=== PATIENT | male | born 1940 | race Caucasian/White ===

== ENCOUNTER 2019-03-28 12:10 | Emergency (ER) | payer BC, MEDICARE, OTHER ==
[2019-03-28] MEDS ORDERED: HYDROcodone/Acetaminophen 10/325 mg Tablet ONE (12:40)
[2019-03-28] MEDS ORDERED: Bupivacaine 0.25% 10 ML VIAL ONE (13:07)
[2019-03-28] MEDS ORDERED: Lidocaine 2% MPF 10 ML AMP (For Epidural Use) ONE (13:07)
[2019-03-28 13:09] LABS: #Eosinphils 0.1 thou/uL (0.0-0.7); #Lymphocytes 0.7 thou/uL (1.20-3.40); #Monocytes 0.8 thou/uL (0.11-0.59); #Neutrophils 5.7 thou/uL (1.40-6.50); %Basophils 0.3 % (0.0-1.0); %Eosinophils 1.3 % (0.0-10.0); %Lymphocytes 8.9 % (21.0-51.0); %Monocytes 10.8 % (0.0-10.0); %Neutrophils 78.8 % (42.0-75.0); Hemoglobin 13.4 g/dL (14.0-18.0); Mean Corpuscular HGB CONC 34.6 g/dL (32.0-36.0); Mean Corpuscular Hemoglobin 31.1 pg (27.0-31.0); Mean Corpuscular Volume 89.8 fL (78.0-98.0); Mean Platelet Volume 6.9 fL (7.4-10.4); Platelet Count 173 thou/uL (130-400); RBC Distribution Width 12.5 % (11.5-14.5); White Blood Cell (WBC) Count 7.3 thou/uL (4.8-10.8)
[2019-03-28] MEDS ORDERED: Dexamethasone 10 MG/ML VIAL ONE (13:11)
[2019-03-28 13:15] LABS: INR-International Normal Ratio 1.1; Prothrombin Time 13.7 SEC (12.0-14.7)
[2019-03-28 13:16] LABS: PTT 32.8 SEC (22.9-36.1)
--- NOTE | 2019-03-28 13:19 | CT ---
CT chest noncontrast CT abdomen and pelvis noncontrast CT thoracic spine noncontrast CT lumbar spine noncontrast HISTORY: Fall. Back injury. Chest injury. Abdomen injury. FINDINGS: Lungs are hyperinflated with scattered areas of parenchymal scarring. Dependent bibasilar a telectasis. Nondisplaced fractures involve the lateral aspect of left ribs 9 and 10. No evidence of pneumothorax. Lack of contrast limits evaluation of the soft tissues. 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 Nonspecific lymph nodes scattered about the mediastinum. Calcification in the arterial structures. Small nonspecific lobular cystic lesions involve the far anterior margin of the spleen. Calcified granuloma consistent with healed granulomatous disease. No evidence of laceration. Urinary bladder intact. No free air or free fluid. Left hip prosthesis partially visualiz ed. Prominent degenerative changes throughout the thoracolumbar spine. Vertebral body heights are maintai rambo. Multilevel central canal and foraminal stenoses. No acute fracture or dislocation evident. IMPRESSION: Nondisplaced left lateral lower rib fractures. No evidence of pneumothorax. Atherosclerosis. Incidental-type findings as detailed above.
[2019-03-28 13:30] LABS: ALT (SGPT) 13 U/L (8-55); AST (SGOT) 15 U/L (5-34); Albumin 3.9 g/dL (3.4-4.8); Alkaline Phosphatase 108 U/L (40-110); Anion Gap 12 mmol/L (10-20); BUN (Urea Nitrogen) 19 mg/dL (8.4-25.7); Bilirubin, Total 0.6 mg/dL (0.2-1.2); Calc. Creatinine Clearance 0 mL/min (70-130); Calcium 9.4 mg/dL (7.8-10.44); Carbon Dioxide 28 mmol/L (23-31); Chloride 107 mmol/L (98-107); Estimated GFR-MDRD 74; Globulin 3.5 g/dL (2.4-3.5); Glucose 149 mg/dL (83-110); Potassium 3.8 mmol/L (3.5-5.1); Protein, Total 7.4 g/dL (5.8-8.1); Sodium 143 mmol/L (136-145)
--- NOTE | 2019-03-28 14:53 | OP ---
DATE OF PROCEDURE: 03/28/2019 PROCEDURE PERFORMED: A left T9, T10, and T11 intercostal nerve block. DIAGNOSIS: Left rib fracture, multiple, nondisplaced. DESCRIPTION OF PROCEDURE: Informed consent was obtained. The patient was sitting on his bed in the patient room in the ER. Sterile drapes were used to cover the table and supplies the left ribs. The lower ribs were prepped with ChloraPrep. Sterile drapes were applied. Using strict aseptic technique, we injected 2% lidocaine to anesthetize the skin. We used a 22-gauge spinal needle and inserted this through the skin and advanced it to the ribs at the appropriate level. Once contact was made with the wrist, we walked this off inferiorly until I just dropped 2 mm deep. We aspirated, which was negative and then injected 3 mL of Marcaine 0.25% with Decadron. This was performed for all three rib levels. Total dose of Decadron was 10 mg, after this, the Band-Aids were applied and the patient was placed recumbent under stable condition. No apparent complications noted at this time. Job ID: [id number]
== END 2019-03-28 14:52 | disposition home or self-care (01) ==
LOC: ERS 12:10
DX: S22.42XA Multiple fractures of ribs, left side, initial encounter for closed fracture (principal); I48.91 Unspecified atrial fibrillation; E11.39 Type 2 diabetes mellitus with other diabetic ophthalmic complication; H42 Glaucoma in diseases classified elsewhere; W17.89XA Other fall from one level to another, initial encounter
CPT/HCPCS: 36415; 71250; 74177; 80053; 85025; 85610; 85730; J1100; J2001; S0020

== ENCOUNTER 2019-12-17 18:55 | Inpatient (IN) | payer MEDICARE, OTHER ==
[2019-12-17] MEDS ORDERED: Dexamethasone 10 MG/ML VIAL ONE (19:20)
[2019-12-17 19:25] LABS: #Lymphocytes 0.2 thou/uL (1.20-3.40); #Monocytes 0.5 thou/uL (0.11-0.59); #Neutrophils 8.1 thou/uL (1.40-6.50); %Basophils 0.3 % (0.0-1.0); %Eosinophils 0.1 % (0.0-10.0); %Lymphocytes 2.3 % (21.0-51.0); %Monocytes 5.5 % (0.0-10.0); %Neutrophils 91.8 % (42.0-75.0); Hemoglobin 12.1 g/dL (14.0-18.0); Mean Corpuscular HGB CONC 33.4 g/dL (32.0-36.0); Mean Corpuscular Hemoglobin 31.3 pg (27.0-31.0); Mean Corpuscular Volume 93.6 fL (78.0-98.0); Mean Platelet Volume 7.3 fL (7.4-10.4); Platelet Count 169 thou/uL (130-400); RBC Distribution Width 12.4 % (11.5-14.5); Red Blood Cell (RBC) Count 3.88 mill/uL (4.70-6.10); White Blood Cell (WBC) Count 8.8 thou/uL (4.8-10.8)
[2019-12-17 19:46] LABS: ALT (SGPT) 15 U/L (8-55); AST (SGOT) 18 U/L (5-34); Albumin 3.6 g/dL (3.4-4.8); Alkaline Phosphatase 108 U/L (40-110); Anion Gap 17 mmol/L (10-20); BUN (Urea Nitrogen) 27 mg/dL (8.4-25.7); Bilirubin, Total 0.6 mg/dL (0.2-1.2); Calc. Creatinine Clearance 0 mL/min (70-130); Calcium 9.1 mg/dL (7.8-10.44); Carbon Dioxide 24 mmol/L (23-31); Chloride 106 mmol/L (98-107); Estimated GFR-MDRD 65; Globulin 3.7 g/dL (2.4-3.5); Glucose 272 mg/dL (83-110); Protein, Total 7.3 g/dL (5.8-8.1); Sodium 143 mmol/L (136-145)
--- NOTE | 2019-12-17 20:19 | RAD ---
Exam: Chest one view HISTORY:Dyspnea. Positive COVID patient. Comparison: None FINDINGS: Cardiac silhouette:Enlarged Aorta: At the sclerosis Pulmonary vessels: Normal Costophrenic angles: Clear LUNGS: Multifocal interstitial and alveolar opacities. Pneumothorax: None Osseous abnormalities: None IMPRESSION: Multi lobar pneumonia.
[2019-12-17] MEDS ORDERED: Pantoprazole 40 MG VIAL ONE (20:33)
[2019-12-17] MEDS ORDERED: Acetaminophen 325 MG TAB PO PRN (21:19)
[2019-12-17] MEDS ORDERED: Dextrose 50% Abboject 50 ML SYRINGE SLOW IVP PRN (21:21)
[2019-12-17] MEDS ORDERED: Dextrose 5% in Water 1,000 ML IV PRN (21:21)
[2019-12-17] MEDS ORDERED: Guaifenesin DM 100-10/5 ML UDCUP PO PRN (21:42)
[2019-12-17 23:07] VITALS: BMI 22.2
[2019-12-17] MEDS: Sodium Chloride 0.9% 1,000 ML IV SCH (23:34)
[2019-12-17] MEDS: Diltiazem 125 MG in Sodium Chloride 0.9% 100 ML IVPB SCH (23:34)
[2019-12-18 02:01] LABS: Troponin I 0.207 ng/mL (< 0.028)
[2019-12-18 03:49] LABS: #Lymphocytes 0.2 thou/uL (1.20-3.40); #Monocytes 0.3 thou/uL (0.11-0.59); #Neutrophils 6.9 thou/uL (1.40-6.50); %Eosinophils 0.1 % (0.0-10.0); %Lymphocytes 2.8 % (21.0-51.0); %Monocytes 3.5 % (0.0-10.0); %Neutrophils 93.5 % (42.0-75.0); Hemoglobin 10.8 g/dL (14.0-18.0); Mean Corpuscular Hemoglobin 31.1 pg (27.0-31.0); Mean Corpuscular Volume 94.1 fL (78.0-98.0); Mean Platelet Volume 7.8 fL (7.4-10.4); Platelet Count 158 thou/uL (130-400); RBC Distribution Width 12.2 % (11.5-14.5); Red Blood Cell (RBC) Count 3.46 mill/uL (4.70-6.10); White Blood Cell (WBC) Count 7.3 thou/uL (4.8-10.8)
[2019-12-18 04:06] LABS: ALT (SGPT) 14 U/L (8-55); AST (SGOT) 16 U/L (5-34); Albumin 3.2 g/dL (3.4-4.8); Alkaline Phosphatase 93 U/L (40-110); Anion Gap 15 mmol/L (10-20); BUN (Urea Nitrogen) 26 mg/dL (8.4-25.7); Bilirubin, Total 0.6 mg/dL (0.2-1.2); Calc. Creatinine Clearance 60 mL/min (70-130); Calcium 8.9 mg/dL (7.8-10.44); Carbon Dioxide 23 mmol/L (23-31); Chloride 107 mmol/L (98-107); Estimated GFR-MDRD 81; Globulin 3.4 g/dL (2.4-3.5); Glucose 312 mg/dL (83-110); Protein, Total 6.6 g/dL (5.8-8.1); Sodium 141 mmol/L (136-145)
--- NOTE | 2019-12-18 04:53 | HP ---
REASON FOR ADMISSION: Shortness of breath. HISTORY OF PRESENT ILLNESS: This is an 79-year-old male patient who is presenting with increasing shortness of breath. He tested positive for COVID-19 approximately 3 days ago. He thinks that he got it from one of the [facility]. Since the past 3 days, he has been more short of breath and today he decided to go to the ER because of the worsening shortness and breath and increased fatigue. In the ER, he is able to finish a full sentence, but he said that he has been working hard to breathe. He denies chest pain. He does have history of atrial fibrillation and currently he is in rapid atrial fibrillation. The patient does not have any fevers or chills. No abdominal pain. No diarrhea. No chest pain. PAST MEDICAL HISTORY: 1. Atrial fibrillation, post Watchman procedure. 2. Diabetes. 3. GI bleed. 4. High cholesterol. 5. Glaucoma. 6. Diverticulitis, post colon resection. 7. Status post left hip replacement. 8. Left shoulder replacement. 9. Stent placement in left eye. SOCIAL HISTORY: He does not smoke. He drinks occasionally. ALLERGIES: TO LEVAQUIN AND METFORMIN. FAMILY HISTORY: Reviewed and found to be noncontributory. REVIEW OF SYSTEMS: All systems reviewed, except the above mentioned, found to be negative. PHYSICAL EXAMINATION: GENERAL: Awake, alert, oriented, does appear short of breath. VITAL SIGNS: His blood pressure is 172/112, heart rate 130, temperature is 100.4. HEENT: Head is nontraumatic, normocephalic. Pupils equal, reactive. Extraocular movements are intact. Nonicteric sclerae. Well-injected conjunctivae. Oral mucosa normal. Nasal mucosa normal. NECK: Supple. No adenopathy. No murmur. Thyroid is not palpable. Trachea is midline. No supraclavicular adenopathy. CARDIOVASCULAR: S1, S2 irregular. No murmurs. No gallops. No friction rubs. No displacement of PMI. LUNGS: Expiratory crackles bilaterally. Bowel sounds are positive. ABDOMEN: Nontender abdomen. No hepatosplenomegaly. EXTREMITIES: He does have evidence of chronic venous insufficiency, hyperpigmented skin in bilateral lower extremities. NEUROLOGIC: Cranial nerves 2 through 12 within normal limits. Normal motor function. Normal sensory function. LABORATORY DATA: Blood work shows WBC of 8.8, hemoglobin 12.1, platelets of 169, neutrophil count 91.8%. D-dimer 5.1. Sodium 143, potassium 4, bicarb of 24, BUN 27, and creatinine 1.09, glucose 272. Lactic acid 1.7. BNP 485. Globulin 3.7. Chest x-ray shows multilobar pneumonia. ASSESSMENT AND PLAN: This is an 79-year-old male patient who is presenting for COVID pneumonia with rapid atrial fibrillation and abnormal troponin related to underlying COVID-19. Pulmonary: Patient will be admitted to [facility]. He is requiring high-flow oxygen. He appears to be tachypneic, but able to maintain his breathing. I did ask him if he is getting tired and he said that possibly yes, so we will have him on BiPAP if needed and he did receive a dose of Decadron in the ER, so we will continue with that on a daily basis. We will not cover him with IV antibiotics since we think that what he has is due to the COVID-19. Cardiac: The patient has history of atrial fibrillation. He is going into rapid atrial fibrillation. I will plan to start him on a Cardizem drip to slow his heart rate and this might help him. He is not on anticoagulation because he does have the Watchman procedure, his troponin is abnormal, but most likely it is due to demand ischemia. We will continue cycling his cardiac enzymes and we will have him on aspirin. I am awaiting for his med rec to be done. He might be on aspirin at home. If not, plan to start him on it tonight. For GI prophylaxis, be on Protonix. For his diabetes, he will be on insulin sliding scale. For DVT prophylaxis, he will be on Lovenox subcutaneously. I did discuss with him code status and he wishes to be a full code. One hour of critical care time was spent to manage this patient. Job ID: [id number]
[2019-12-18] MEDS ORDERED: Cilostazol 100 MG TAB PO SCH (09:00)
[2019-12-18] MEDS ORDERED: CILOSTAZOL 50 MG PO SCH (09:00)
[2019-12-18] MEDS ORDERED: NETARSUDIL MESYLATE OP SCH (09:00)
[2019-12-18] MEDS ORDERED: Non-Formulary Item 1 EACH (Potassium Chloride [Potassium Chloride] 20 MEQ) PO SCH (09:00)
[2019-12-18] MEDS ORDERED: Netarsudil Mesylate [Rhopressa] EA EYE SCH (09:00)
[2019-12-18] MEDS ORDERED: DORZOLAMIDE HCL OP SCH (09:00)
[2019-12-18] MEDS ORDERED: Dexamethasone 6 MG in Sodium Chloride 0.9% 50 ML IVPB SCH (09:00)
[2019-12-18] MEDS ORDERED: BIMATOPROST OP SCH (09:00)
[2019-12-18] MEDS ORDERED: VALACYCLOVIR HCL 1000 MG PO SCH (09:00)
[2019-12-18] MEDS: Atorvastatin Calcium 40 MG TAB PO SCH (09:38)
[2019-12-18] MEDS: Furosemide 20 MG TAB PO SCH ×2 (09:38→21:15)
[2019-12-18] MEDS: valACYclovir 500 MG TAB PO SCH (09:38)
[2019-12-18] MEDS: Digoxin 0.125 MG TAB PO SCH (09:38)
[2019-12-18] MEDS: Alogliptin 25 MG TAB PO SCH (09:39)
[2019-12-18] MEDS: hydrOXYzine 25 MG TAB PO SCH ×2 (09:39→21:15)
[2019-12-18] MEDS: Potassium Chloride 20 MEQ TAB PO SCH ×2 (09:39→21:14)
[2019-12-18] MEDS: Enoxaparin Sodium 40 MG/0.4 ML SYRINGE SC SCH ×3 (09:48→21:13)
[2019-12-18] MEDS: Azithromycin 500 MG in Sodium Chloride 0.9% 250 ML 250 ML IVPB SCH (09:58)
[2019-12-18] MEDS: Cefepime 2 GM in Sodium Chloride 0.9% 100 ML IVPB SCH ×2 (09:58→21:17)
[2019-12-18] MEDS: methylPREDNISolone Sod Succ 40 MG VIAL IVP SCH ×4 (10:00→23:12)
[2019-12-18] MEDS: Timolol 0.5% Ophth Soln 5 ml Bottle EA EYE SCH ×2 (10:02→21:15)
[2019-12-18] MEDS: Brimonidine Tartrate 0.2% Ophth Soln 5 ml Bottle EA EYE SCH ×2 (10:02→21:12)
[2019-12-18] MEDS ORDERED: REMDESIVIR (EUA) 200 MG in Sodium Chloride 0.9% 250 ML 210 ML IV SCH (10:15)
[2019-12-18] MEDS: Dorzolamide HCl 2% Ophth Soln 10 ml Bottle EA EYE SCH ×2 (11:41→21:13)
--- NOTE | 2019-12-18 14:45 | CON ---
DATE OF CONSULTATION: 12/18/2019 REASON FOR CONSULTATION: Atrial fibrillation and recent COVID positive. HISTORY OF PRESENT ILLNESS: Mr. Wiggins is a very pleasant 79-year-old gentleman whom I have seen him in the past. He recently was diagnosed with COVID pneumonia. He began having difficulty with hypoxia in addition to tachycardia. He has a history of chronic atrial fibrillation, status post Watchman device. He is currently not on anticoagulation therapy. His heart rate was in the 120s. He is currently on IV Cardizem with better rate control in the upper 90s to 100s. His outpatient medications for rate control include metoprolol succinate ER 25 mg subcutaneously q.a.m. PAST MEDICAL HISTORY: Chronic atrial fibrillation, PAD, carotid disease, diabetes mellitus, glaucoma, hydrocele repair, hip replacement, shoulder replacement, corneal transplant. SOCIAL HISTORY: No current tobacco or alcohol use. He currently resides at the [facility]. REVIEW OF SYSTEMS: A 10-point review of systems is reviewed as above, otherwise negative. PHYSICAL EXAMINATION: VITAL SIGNS: Blood pressure 112/64, pulse 82, respirations 20. Due to COVID positive, physical exam was deferred. PERTINENT LABORATORY DATA: Hemoglobin 10.8, hematocrit 32.6, platelet count of 158. Creatinine 0.90. Peak troponin 0.2. IMPRESSION: 1. COVID pneumonia. 2. Hypoxia. 3. Atrial fibrillation with rapid ventricular response. RECOMMENDATIONS: Mr. Wiggins's increased heart rate likely secondary to hypoxia. Elevated troponin likely due to demand ischemia. At this point, continue with conservative therapy. He has been placed on a Zithromax, atorvastatin, cefepime in addition to IV Cardizem. He has also been placed on enoxaparin 40 mg subcutaneously b.i.d. because of his COVID pneumonia. He has also been placed on methylprednisolone. We will continue to monitor closely. Once his hypoxia improves, I do feel his tachycardia will also improve. We will continue to follow closely. Job ID: [id number]
--- NOTE | 2019-12-18 16:16 | PDOC.HOSPP ---
- Subjective Encounter Date: 12/18/19 Subjective: Patient reports he is doing okay. He feels a little short of breath today when he is trying to talk much. Denies any other specific complaints. - Objective Vital Signs & Weight: Vital Signs (12 hours) Pulse Ox 12/18/19 10:49 98 12/18/19 08:00 100 Weight Weight 146 lb 6.4 oz Most Recent Monitor Data Heart Rate from ECG 95 NIBP 118/72 NIBP BP-Mean 87 Respiration from ECG 28 SpO2 95 I&O: 12/17/19 12/18/19 12/19/19 06:59 06:59 06:59 Intake Total 590 Output Total 800 Balance -210 Result Diagrams: 12/18/19 03:15 12/18/19 03:15 Additional Labs: Accuchecks 12/18/19 11:10 POC Glucose 393 H Hospitalist ROS - Medication Medications: Active Medications Generic Name Dose Route Start Last Admin Trade Name Freq PRN Reason Stop Dose Admin Alogliptin Benzoate 25 mg 12/18/19 09:00 12/18/19 09:39 Alogliptin PO 25 mg DAILY FRANCISCO JAVIER Administration Atorvastatin Calcium 40 mg 12/18/19 09:00 12/18/19 09:38 Lipitor PO 40 mg DAILY FRANCISCO JAVIER Administration Brimonidine Tartrate 1 drop 12/18/19 09:00 12/18/19 10:02 Alphagan 0.2% Ophth Soln EA EYE 1 drop BID FRANCISCO JAVIER Administration Cilostazol 50 mg 12/18/19 09:00 12/18/19 09:38 Pletal PO 50 mg DAILY FRANCISCO JAVIER Administration Digoxin 0.125 mg 12/18/19 09:00 12/18/19 09:38 Lanoxin PO 0.125 mg DAILY FRANCISCO JAVIER Administration Dorzolamide HCl 1 drop 12/18/19 09:00 12/18/19 11:41 Trusopt 2% Ophth Soln EA EYE 1 drop BID FRANCISCO JAVIER Administration Furosemide 20 mg 12/18/19 09:00 12/18/19 09:38 Lasix PO 20 mg BID FRANCISCO JAVIER Administration Hydroxyzine HCl 25 mg 12/18/19 09:00 12/18/19 09:39 Atarax PO 25 mg BID FRANCISCO JAVIER Administration Diltiazem HCl 125 mg/ Sodium 125 mls @ 0 mls/hr 12/17/19 21:30 12/17/19 23:34 Chloride IVPB 125 mls INF FRANCISCO JAVIER Administration Protocol Titrate Sodium Chloride 1,000 mls @ 50 mls/hr 12/17/19 22:00 12/17/19 23:34 Normal Saline 0.9% IV 1,000 mls .Q20H FRANCISCO JAVIER Administration Azithromycin 500 mg/ Sodium 250 mls @ 250 mls/hr 12/18/19 10:00 12/18/19 09: 58 Chloride IVPB 250 mls 1000 FRANCISCO JAVIER Administration Cefepime HCl 2 gm/ Sodium 100 mls @ 200 mls/hr 12/18/19 10:00 12/18/19 09:58 Chloride IVPB 100 mls 1000,2200 FRANCISCO JAVIER Administration Methylprednisolone Sodium Succinate 40 mg 12/18/19 10:00 12/18/19 11:42 Solu-Medrol IVP Not Given Q6HR FRANCISCO JAVIER Metoprolol Succinate 25 mg 12/18/19 09:00 12/18/19 09:38 Toprol Xl PO 25 mg DAILY FRANCISCO JAVIER Administration Pantoprazole Sodium 40 mg 12/18/19 09:00 12/18/19 09:38 Protonix PO 40 mg DAILY FRANCISCO JAVIER Administration Potassium Chloride 20 meq 12/18/19 09:00 12/18/19 09:39 K-Dur PO 20 meq BID FRANCISCO JAVIER Administration Sodium Chloride 10 ml 12/18/19 09:00 12/18/19 09:41 Flush - Normal Saline IVF 10 ml Q12HR FRANCISCO JAVIER Administration Timolol Maleate 1 drop 12/18/19 09:00 12/18/19 10:02 Timoptic 0.5% Ophth Soln EA EYE 1 drop BID FRANCISCO JAVIER Administration Valacyclovir HCl 1,000 mg 12/18/19 09:00 12/18/19 09:38 Valtrex PO 1,000 mg DAILY FRANCISCO JAVIER Administration - Exam General Appearance: NAD, awake alert General - other findings: Sitting up in bed. High flow nasal cannula. Heart: RRR, no murmur, no gallops, no rubs, normal peripheral pulses Heart - other findings: Borderline tachy Respiratory: no ronchi, normal chest expansion, rales, wheezes Gastrointestinal: soft, non-tender, non-distended, normal bowel sounds, no palpable masses, no hepatomegaly, no splenomegaly, no bruit Extremities: no cyanosis, no clubbing, no edema Skin: normal turgor Musculoskeletal: generalized weakness Psychiatric: normal affect, normal behavior, A&O x 3 Hosp A/P (1) Acute respiratory failure with hypoxia Code(s): J96.01 - ACUTE RESPIRATORY FAILURE WITH HYPOXIA Status: Acute (2) COVID-19 virus infection Code(s): U07.1 - COVID-19 Status: Acute (3) Viral pneumonia Code(s): J12.9 - VIRAL PNEUMONIA, UNSPECIFIED Status: Acute (4) Glaucoma Code(s): H40.9 - UNSPECIFIED GLAUCOMA Status: Chronic (5) Diabetes mellitus Code(s): E11.9 - TYPE 2 DIABETES MELLITUS WITHOUT COMPLICATIONS Status: Chronic (6) Hyperlipidemia Code(s): E78.5 - HYPERLIPIDEMIA, UNSPECIFIED Status: Chronic (7) Atrial fibrillation with rapid ventricular response Code(s): I48.91 - UNSPECIFIED ATRIAL FIBRILLATION Status: Acute - Plan Acute hypoxic respiratory failure: Secondary to COVID pneumonia. Patient remains on high flow nasal cannula. Pulmonology following. COVID-19 pneumonia: Patient received antiviral therapy with Remdesivir. I believe he is also getting convalescent plasma ordered. He will remain on steroids. He has a significantly elevated CRP. Diabetes mellitus: Patient has significant hyperglycemia. We will have to add some insulin while continuing his Januvia. Steroids were going to make his blood sugars very challenging. Atrial fibrillation with rapid ventricular response: Cardiology following. Patient's tachycardia likely due to his underlying infection and hypoxia. Glaucoma: Continue with his usual home regimen of drops. Hyperlipidemia: Continue statin.
[2019-12-18] MEDS: HumaLOG 300 UNITS/3 ML VIAL SC PRN (17:17)
[2019-12-18] MEDS: Sodium Chloride 0.9% 1,000 ML IV SCH (17:26)
--- NOTE | 2019-12-18 19:44 | CON ---
DATE OF CONSULTATION: HISTORY OF PRESENT ILLNESS: Anny Wiggins is an 79-year-old gentleman, who was admitted with several-day history of shortness of breath, low grade fever, and a cough which is nonproductive. Three days ago, he presented to the ER, where he was found to have a positive coronavirus test. Saturations on room air only 91%. He is presently on high-flow. He is a nonsmoker and nondrinker. PAST MEDICAL HISTORY: Pertinent for glaucoma, diabetes, cardiac arrhythmias. PREVIOUS SURGERIES: Left hip, left shoulder, stent placed, eye surgery. SOCIAL HISTORY: No drug abuse. No smoking history. Alcohol, minimal. HOME MEDICATIONS: Include; 1. Eyedrops, timolol, Lumigan, Rhopressa. 2. Lasix 20 b.i.d. 3. . 4. Hydroxyzine 25. 5. . 6. Lipitor 40. 7. Januvia 100. 8. Potassium 20. 9. Metoprolol 25. 10. Dig 0.125. ALLERGIES: METFORMIN, LEVAQUIN. REVIEW OF SYSTEMS: Otherwise 10-point negative. PHYSICAL EXAMINATION: VITAL SIGNS: Sats are on high flow of 50%, 35 L at 90%. Pulse 103, blood pressure 100/60. CHEST: No wheezing. No crackles. CARDIAC: Normal S1 and S2. No gallops. ABDOMEN: No masses. LABORATORY DATA: White count 7000, platelet count is normal. Glucose is elevated. BNP is 485. His x-ray shows diffuse pulmonary infiltrates. ASSESSMENT AND PLAN: Ferrera positive pneumonia, respiratory failure, history of atrial fibrillation, history of glaucoma. His D-dimer is elevated. We are going to increase his Lovenox to twice a day 40. He is on Zithromax, Maxipime, high-dose steroids, convalescent plasma and remdesivir will be initiated as per the protocol. We will try and put him in prone position as much as possible. Consultation note, 70 minutes, 50% direct patient care. Job ID: [id number]
[2019-12-18] MEDS ORDERED: Insulin Glargine 15 UNITS in Pre-Filled Syringe 1 EACH SC SCH (21:00)
[2019-12-18] MEDS: Famotidine/PF 20 mg/2ml Vial SLOW IVP SCH (21:14)
[2019-12-18] MEDS: Latanoprost 0.005% Ophth Soln 2.5 ml Bottle EA EYE SCH (21:14)
[2019-12-18] MEDS: Diltiazem 125 MG in Sodium Chloride 0.9% 100 ML IVPB SCH (22:43)
[2019-12-19] MEDS: Mometasone 200 MCG/Formoterol 5 MCG 120 PUFF INHALER INH SCH ×3 (02:51→19:07)
[2019-12-19] MEDS: methylPREDNISolone Sod Succ 40 MG VIAL IVP SCH ×4 (05:20→22:30)
[2019-12-19] MEDS: HumaLOG 300 UNITS/3 ML VIAL SC PRN ×4 (05:47→22:35)
[2019-12-19 07:16] LABS: Hemoglobin 11.2 g/dL (14.0-18.0); Mean Corpuscular HGB CONC 31.9 g/dL (32.0-36.0); Mean Corpuscular Hemoglobin 31.3 pg (27.0-31.0); Mean Platelet Volume 7.7 fL (7.4-10.4); Platelet Count 198 thou/uL (130-400); RBC Distribution Width 12.5 % (11.5-14.5); Red Blood Cell (RBC) Count 3.58 mill/uL (4.70-6.10)
[2019-12-19 07:37] LABS: Anion Gap 13 mmol/L (10-20); BUN (Urea Nitrogen) 37 mg/dL (8.4-25.7); Calc. Creatinine Clearance 49 mL/min (70-130); Calcium 9.1 mg/dL (7.8-10.44); Carbon Dioxide 19 mmol/L (23-31); Chloride 108 mmol/L (98-107); Estimated GFR-MDRD 63; Glucose 330 mg/dL (83-110); Potassium 4.3 mmol/L (3.5-5.1); Sodium 136 mmol/L (136-145)
--- NOTE | 2019-12-19 07:37 | RAD ---
Chest one view HISTORY: COVID pneumonia. COMPARISON: 12/17/2019. FINDINGS: Cardiac silhouette is magnified and enlarged. Pulmonary vasculature slightly engorged. Patchy parenchymal infiltrates throughout each lobe have become more dense than on the prior study. Mediastinum remains midline with aortic calcification. No evidence of pneumothorax. Left shoulder prosthesis partially visualized. court recording monitor leads overlie the chest. IMPRESSION : Radiographic progression of multifocal pneumonia.
[2019-12-19] MEDS ORDERED: Furosemide 40 MG/4 ML VIAL SLOW IVP SCH (08:45)
[2019-12-19 08:47] LABS: Band 4 % (5-11); Lymphocytes 1 % (21-51); MDiff Complete? YES; Monocytes 1 % (0-10); Platelet Morphology Comment Appears Adequate; Polychromasia SLIGHT = 2-3 cells (100X) (0-2/hpf)
--- NOTE | 2019-12-19 08:54 | PRG ---
DATE OF SERVICE: 12/19/2019 SUBJECTIVE: Mr. Wiggins is currently resting. He has required more O2 over the last 24 hours. His heart rate has also increased and required increase in his IV Cardizem. OBJECTIVE: VITAL SIGNS: Blood pressure 142/83, pulse 95, and temperature 99.1. Physical exam deferred due to COVID. PERTINENT LABORATORY DATA: Hemoglobin 11.2. Creatinine 1.12. IMPRESSION: 1. COVID pneumonia. 2. Chronic atrial fibrillation. 3. Hypoxia. RECOMMENDATIONS: 1. COVID pneumonia, managed per Pulmonary. 2. Add p.o. Cardizem to supplement IV Cardizem. Increase IV Cardizem, likely due to increased oxygen requirements. 3. Continue digoxin. 4. Continue to monitor closely. Would continue with current pulmonary medications to combat COVID pneumonia. Job ID: [id number]
[2019-12-19] MEDS: Brimonidine Tartrate 0.2% Ophth Soln 5 ml Bottle EA EYE SCH ×2 (08:57→22:31)
[2019-12-19] MEDS: Dorzolamide HCl 2% Ophth Soln 10 ml Bottle EA EYE SCH ×2 (08:57→22:30)
[2019-12-19] MEDS: Timolol 0.5% Ophth Soln 5 ml Bottle EA EYE SCH ×2 (08:57→22:31)
[2019-12-19] MEDS: Enoxaparin Sodium 40 MG/0.4 ML SYRINGE SC SCH ×2 (08:58→22:32)
[2019-12-19] MEDS: Potassium Chloride 20 MEQ TAB PO SCH ×2 (08:59→22:34)
[2019-12-19] MEDS: Azithromycin 500 MG in Sodium Chloride 0.9% 250 ML 250 ML IVPB SCH (08:59)
[2019-12-19] MEDS: Digoxin 0.125 MG TAB PO SCH (08:59)
[2019-12-19] MEDS: Cefepime 2 GM in Sodium Chloride 0.9% 100 ML IVPB SCH ×2 (08:59→22:30)
[2019-12-19] MEDS: Atorvastatin Calcium 40 MG TAB PO SCH (08:59)
[2019-12-19] MEDS: Famotidine/PF 20 mg/2ml Vial SLOW IVP SCH ×2 (08:59→22:33)
[2019-12-19] MEDS: valACYclovir 500 MG TAB PO SCH (09:00)
[2019-12-19] MEDS: Alogliptin 25 MG TAB PO SCH (09:00)
[2019-12-19] MEDS: hydrOXYzine 25 MG TAB PO SCH ×2 (09:00→22:20)
[2019-12-19] MEDS: Furosemide 20 MG TAB PO SCH ×2 (09:02→22:20)
--- NOTE | 2019-12-19 09:30 | PRG ---
DATE OF SERVICE: 12/19/2019 SUBJECTIVE: This morning, he is requiring more oxygen. OBJECTIVE: VITAL SIGNS: Temperature is 99, pulse is 118 and regular, he is on a flow rate of 80 with 60% FiO2. His I's and O's are slightly positive. CHEST: Rhonchi, crackles. CARDIAC: Normal S1, S2. No gallops. ABDOMEN: No masses. LABORATORY DATA: X-ray shows diffuse infiltrates. IMPRESSION: 1. Respiratory failure, benavides positive pneumonia. 2. . PLAN: He is on Remdesivir. He has had convalescent plasma, broad-spectrum antibiotics. Continue supportive care, PT. We will follow. Job ID: [id number]
[2019-12-19 09:39] LABS: Neutrophil 94 % (42-75)
[2019-12-19] MEDS: REMDESIVIR (EUA) 100 MG in Sodium Chloride 0.9% 250 ML 230 ML IV SCH (11:39)
[2019-12-19] MEDS: Sodium Chloride 0.9% 1,000 ML IV SCH (14:05)
--- NOTE | 2019-12-19 14:34 | PDOC.HOSPP ---
- Subjective Encounter Date: 12/19/19 Subjective: He feels ok. His breathing is a little worse than yesterday. He has not been eating and not hungry. - Objective Vital Signs & Weight: Vital Signs (12 hours) Temp Resp Pulse Ox 12/19/19 13:40 28 H 12/19/19 07:13 95 12/19/19 07:11 99.1 F 12/19/19 04:00 95 12/19/19 03:29 98.7 F Weight Weight 146 lb 6.4 oz Most Recent Monitor Data Heart Rate from ECG 93 NIBP 137/77 NIBP BP-Mean 97 Respiration from ECG 27 SpO2 99 I&O: 12/18/19 12/19/19 12/20/19 06:59 06:59 06:59 Intake Total 3130 Output Total 1750 Balance 1380 Result Diagrams: 12/19/19 07:05 12/19/19 07:05 Additional Labs: Accuchecks 12/19/19 12/19/19 12/18/19 11:12 05:51 21:28 POC Glucose 276 H 309 H 243 H 12/18/19 17:06 POC Glucose 289 H Hospitalist ROS - Medication Medications: Active Medications Generic Name Dose Route Start Last Admin Trade Name Freq PRN Reason Stop Dose Admin Alogliptin Benzoate 25 mg 12/18/19 09:00 12/19/19 09:00 Alogliptin PO 25 mg DAILY FRANCISCO JAVIER Administration Atorvastatin Calcium 40 mg 12/18/19 09:00 12/19/19 08:59 Lipitor PO 40 mg DAILY FRANCISCO JAVIER Administration Brimonidine Tartrate 1 drop 12/18/19 09:00 12/19/19 08:57 Alphagan 0.2% Ophth Soln EA EYE 1 drop BID FRANCISCO JAVIER Administration Digoxin 0.125 mg 12/18/19 09:00 12/19/19 08:59 Lanoxin PO 0.125 mg DAILY FRANCISCO JAVIER Administration Diltiazem HCl 180 mg 12/19/19 09:00 12/19/19 08:59 Cardizem Cd PO 180 mg DAILY FRANCISCO JAVIER Administration Dorzolamide HCl 1 drop 12/18/19 09:00 12/19/19 08:57 Trusopt 2% Ophth Soln EA EYE 1 drop BID FRANCISCO JAVIER Administration Enoxaparin Sodium 40 mg 12/18/19 21:00 12/19/19 08:58 Lovenox SC 40 mg BID FRANCISCO JAVIER Administration Famotidine 20 mg 12/18/19 21:00 12/19/19 08:59 Pepcid SLOW IVP 20 mg BID FRANCISCO JAVIER Administration Furosemide 20 mg 12/18/19 09:00 12/19/19 09:02 Lasix PO Not Given BID FRANCISCO JAVIER Hydroxyzine HCl 25 mg 12/18/19 09:00 12/19/19 09:00 Atarax PO 25 mg BID FRANCISCO JAVIER Administration Diltiazem HCl 125 mg/ Sodium 125 mls @ 0 mls/hr 12/17/19 21:30 12/18/19 22:43 Chloride IVPB 125 mls INF FRANCISCO JAVIER Administration Protocol Titrate Sodium Chloride 1,000 mls @ 50 mls/hr 12/17/19 22:00 12/19/19 14:05 Normal Saline 0.9% IV 1,000 mls .Q20H FRANCISCO JAVIER Administration Azithromycin 500 mg/ Sodium 250 mls @ 250 mls/hr 12/18/19 10:00 12/19/19 08: 59 Chloride IVPB 250 mls 1000 FRANCISCO JAVIER Administration Cefepime HCl 2 gm/ Sodium 100 mls @ 200 mls/hr 12/18/19 10:00 12/19/19 08:59 Chloride IVPB 100 mls 1000,2200 FRANCISCO JAVIER Administration Remdesivir 100 mg/ Sodium 250 mls @ 250 mls/hr 12/19/19 11:00 12/19/19 11:39 Chloride IV 12/22/19 11:59 250 mls 1100 FRANCISCO JAVIER Administration Latanoprost 1 drop 12/18/19 21:00 12/18/19 21:14 Xalatan 0.005% [facility] EA EYE 1 drop HS FRANCISCO JAVIER Administration Methylprednisolone Sodium Succinate 40 mg 12/18/19 10:00 12/19/19 11:39 Solu-Medrol IVP 40 mg Q6HR FRANCISCO JAVIER Administration Metoprolol Succinate 25 mg 12/18/19 09:00 12/19/19 08:59 Toprol Xl PO 25 mg DAILY FRANCISCO JAVIER Administration Mometasone Furoate/Formoterol Fumar 2 puff 12/18/19 18:30 12/19/19 05:22 Dulera 200 Mcg/5 Mcg Inhaler INH Not Given BID-RT FRANCISCO JAVIER Pantoprazole Sodium 40 mg 12/18/19 09:00 12/19/19 08:59 Protonix PO 40 mg DAILY FRANCISCO JAVIER Administration Potassium Chloride 20 meq 12/18/19 09:00 12/19/19 08:59 K-Dur PO 20 meq BID FRANCISCO JAVIER Administration Sodium Chloride 10 ml 12/18/19 09:00 12/19/19 09:00 Flush - Normal Saline IVF 10 ml Q12HR FRANCISCO JAVIER Administration Timolol Maleate 1 drop 12/18/19 09:00 12/19/19 08:57 Timoptic 0.5% Ophth Soln EA EYE 1 drop BID FRANCISCO JAVIER Administration Valacyclovir HCl 1,000 mg 12/18/19 09:00 12/19/19 09:00 Valtrex PO 1,000 mg DAILY FRANCISCO JAVIER Administration - Exam General Appearance: NAD, awake alert General - other findings: HF NC Heart: no murmur, irregular Respiratory: rales (Diffuse, bilateral.) Gastrointestinal: soft, non-tender, non-distended, normal bowel sounds, no palpable masses, no hepatomegaly, no splenomegaly, no bruit Extremities: no cyanosis, no clubbing, no edema Skin: normal turgor Musculoskeletal: generalized weakness Psychiatric: normal affect, normal behavior, A&O x 3 Hosp A/P (1) Acute respiratory failure with hypoxia Code(s): J96.01 - ACUTE RESPIRATORY FAILURE WITH HYPOXIA Status: Acute (2) COVID-19 virus infection Code(s): U07.1 - COVID-19 Status: Acute (3) Viral pneumonia Code(s): J12.9 - VIRAL PNEUMONIA, UNSPECIFIED Status: Acute (4) Glaucoma Code(s): H40.9 - UNSPECIFIED GLAUCOMA Status: Chronic (5) Diabetes mellitus Code(s): E11.9 - TYPE 2 DIABETES MELLITUS WITHOUT COMPLICATIONS Status: Chronic (6) Hyperlipidemia Code(s): E78.5 - HYPERLIPIDEMIA, UNSPECIFIED Status: Chronic (7) Atrial fibrillation with rapid ventricular response Code(s): I48.91 - UNSPECIFIED ATRIAL FIBRILLATION Status: Acute - Plan Acute hypoxic respiratory failure: Secondary to COVID pneumonia. Patient remains on high flow nasal cannula. Pulmonology following. Moving toward BIPAP. COVID-19 pneumonia: Patient received antiviral therapy with Remdesivir. I believe he is also getting convalescent plasma ordered. He will remain on steroids. He has a significantly elevated CRP, ferritin and D-dimer. Diabetes mellitus: Patient has significant hyperglycemia. We will have to add some insulin while continuing his Januvia. Increasing the SSI to aggressive and increasing the Lantus. Steroids were going to make his blood sugars very challenging. Atrial fibrillation with rapid ventricular response: Cardiology following. Patient's tachycardia likely due to his underlying infection and hypoxia. Still on Cardizem gtt this morning. Glaucoma: Continue with his usual home regimen of drops. Hyperlipidemia: Continue statin. Disposition: Discussed with the patient and his son, Dr. Wiggins, with his permission. Unfortunately, he is progressing and his CXR looks worse. His sats are more challenging. High inflammatory markers. Family will discuss the desired plan and goals of care.
[2019-12-19] MEDS: Latanoprost 0.005% Ophth Soln 2.5 ml Bottle EA EYE SCH (22:31)
[2019-12-19] MEDS: Insulin Glargine 20 UNITS in Pre-Filled Syringe 1 EACH SC SCH (22:32)
[2019-12-20] MEDS: Diltiazem 125 MG in Sodium Chloride 0.9% 100 ML IVPB SCH ×2 (02:10→21:27)
[2019-12-20] MEDS ORDERED: Lorazepam 2 MG/ML VIAL SLOW IVP SCH ×2 (03:00→12:30)
[2019-12-20] MEDS ORDERED: Metoprolol Tartrate 100 MG TAB ONE (05:20)
[2019-12-20] MEDS ORDERED: Metoprolol Tartrate 5 MG/5 ML VIAL ONE (05:22)
[2019-12-20 05:36] LABS: #Lymphocytes 0.4 thou/uL (1.20-3.40); #Monocytes 0.6 thou/uL (0.11-0.59); #Neutrophils 9.8 thou/uL (1.40-6.50); %Lymphocytes 3.2 % (21.0-51.0); %Monocytes 5.9 % (0.0-10.0); %Neutrophils 90.8 % (42.0-75.0); Hemoglobin 12.2 g/dL (14.0-18.0); Mean Corpuscular HGB CONC 32.2 g/dL (32.0-36.0); Mean Corpuscular Hemoglobin 30.9 pg (27.0-31.0); Mean Corpuscular Volume 96.1 fL (78.0-98.0); Mean Platelet Volume 7.8 fL (7.4-10.4); Platelet Count 244 thou/uL (130-400); RBC Distribution Width 12.5 % (11.5-14.5); Red Blood Cell (RBC) Count 3.94 mill/uL (4.70-6.10); White Blood Cell (WBC) Count 10.8 thou/uL (4.8-10.8)
[2019-12-20 05:49] LABS: Anion Gap 16 mmol/L (10-20); BUN (Urea Nitrogen) 40 mg/dL (8.4-25.7); Calc. Creatinine Clearance 53 mL/min (70-130); Calcium 9.9 mg/dL (7.8-10.44); Carbon Dioxide 21 mmol/L (23-31); Chloride 112 mmol/L (98-107); Estimated GFR-MDRD 70; Glucose 154 mg/dL (83-110); Potassium 4.2 mmol/L (3.5-5.1); Sodium 145 mmol/L (136-145)
[2019-12-20 05:56] LABS: ALT (SGPT) 23 U/L (8-55); AST (SGOT) 28 U/L (5-34); Albumin 3.4 g/dL (3.4-4.8); Alkaline Phosphatase 105 U/L (40-110); Bilirubin, Direct 0.3 mg/dL (0.1-0.3); Bilirubin, Total 0.4 mg/dL (0.2-1.2); Protein, Total 7.4 g/dL (5.8-8.1)
--- NOTE | 2019-12-20 07:47 | RAD ---
EXAM: Single view of the chest HISTORY: Pneumonia COMPARISON: 12/19/2019 FINDINGS: Single view of the chest shows an enlarged but stable cardiomediastinal silhouette. Multifo santa scattered airspace opacities are seen in the lungs, unchanged. No pleural effusion is seen. The patient has a left shoulder prosthesis. Degenerative changes are seen in the spine. IMPRESSION: Stable multifocal pneumonia
[2019-12-20] MEDS: methylPREDNISolone Sod Succ 40 MG VIAL IVP SCH ×4 (09:35→23:41)
[2019-12-20] MEDS: Atorvastatin Calcium 40 MG TAB PO SCH (09:35)
[2019-12-20] MEDS: Mometasone 200 MCG/Formoterol 5 MCG 120 PUFF INHALER INH SCH ×2 (09:35→18:31)
[2019-12-20] MEDS: Alogliptin 25 MG TAB PO SCH (09:35)
[2019-12-20] MEDS: Brimonidine Tartrate 0.2% Ophth Soln 5 ml Bottle EA EYE SCH ×2 (09:35→21:44)
[2019-12-20] MEDS: Dorzolamide HCl 2% Ophth Soln 10 ml Bottle EA EYE SCH ×2 (09:36→21:44)
[2019-12-20] MEDS: Digoxin 0.125 MG TAB PO SCH (09:36)
[2019-12-20] MEDS: Potassium Chloride 20 MEQ TAB PO SCH ×2 (09:37→21:08)
[2019-12-20] MEDS: Enoxaparin Sodium 40 MG/0.4 ML SYRINGE SC SCH (09:37)
[2019-12-20] MEDS: Famotidine/PF 20 mg/2ml Vial SLOW IVP SCH ×2 (09:37→21:07)
[2019-12-20] MEDS: Furosemide 20 MG TAB PO SCH ×2 (09:37→21:45)
[2019-12-20] MEDS: hydrOXYzine 25 MG TAB PO SCH ×2 (09:37→21:08)
[2019-12-20] MEDS: Timolol 0.5% Ophth Soln 5 ml Bottle EA EYE SCH ×2 (09:37→21:45)
[2019-12-20] MEDS: Azithromycin 500 MG in Sodium Chloride 0.9% 250 ML 250 ML IVPB SCH (09:38)
[2019-12-20] MEDS: Cefepime 2 GM in Sodium Chloride 0.9% 100 ML IVPB SCH ×2 (09:38→21:09)
[2019-12-20] MEDS: Sodium Chloride 0.9% 1,000 ML IV SCH (09:38)
[2019-12-20] MEDS: valACYclovir 500 MG TAB PO SCH (09:38)
--- NOTE | 2019-12-20 10:11 | PRG ---
DATE OF SERVICE: 12/20/2019 SUBJECTIVE: An 79-year-old gentleman, who is on BiPAP 100%, FiO2 sats 99%. OBJECTIVE: VITAL SIGNS: Pulse 120, regular; temperature 97, respirations 13. His I's and O's positive. CHEST: Rhonchi, crackles. CARDIAC: Normal S1, S2. No gallops. LABORATORY STUDIES: Lytes are normal. Creatinine is . X-ray shows worsening bilateral pulmonary infiltrates. Ground-glass. IMPRESSION: 1. Respiratory failure. 2. Bilateral bronchopneumonia. 3. Ferrera positive pneumonia. 4. Supraventricular tachycardia. PLAN: Discussed with Dr. Wiggins, the patient's son, who is a physician. They are going to make a decision regarding a code status. code. He needs to be intubated, transferred to the ICU and consider prone position, etc. Otherwise, on high-dose steroids, remdesivir, he has already had plasma. Job ID: [id number]
[2019-12-20] MEDS: Metoprolol Tartrate 5 MG/5 ML VIAL IVP PRN (11:31)
[2019-12-20] MEDS ORDERED: Lorazepam 2 MG/ML VIAL ONE (11:52)
[2019-12-20] MEDS ORDERED: Morphine 2 MG/ML VIAL ONE (12:00)
[2019-12-20] MEDS ORDERED: Morphine 2 MG/ML VIAL SLOW IVP SCH (12:30)
[2019-12-20] MEDS: REMDESIVIR (EUA) 100 MG in Sodium Chloride 0.9% 250 ML 230 ML IV SCH (12:46)
--- NOTE | 2019-12-20 18:08 | PDOC.HOSPP ---
- Subjective Encounter Date: 12/20/19 Subjective: Patient was having more difficulties with respirations today. He was a bit more agitated and confused. Sats were dropping into the mid 70s. He received some Ativan after discussion with the patient's family. He has improved since then and is much more settled. - Objective Vital Signs & Weight: Vital Signs (12 hours) Pulse Resp Pulse Ox 12/20/19 14:52 97 23 H 93 L 12/20/19 12:11 121 H 39 H 87 L 12/20/19 09:37 95 12/20/19 09:36 95 12/20/19 08:00 90 L Weight Weight 146 lb 6.4 oz Most Recent Monitor Data Heart Rate from ECG 93 NIBP 131/80 NIBP BP-Mean 97 Respiration from ECG 26 SpO2 95 I&O: 12/19/19 12/20/19 12/21/19 06:59 06:59 06:59 Intake Total 3130 Output Total 1750 Balance 1380 Result Diagrams: 12/20/19 03:20 12/20/19 03:30 Additional Labs: Accuchecks 12/19/19 20:45 POC Glucose 291 H Hospitalist ROS - Medication Medications: Active Medications Generic Name Dose Route Start Last Admin Trade Name Freq PRN Reason Stop Dose Admin Alogliptin Benzoate 25 mg 12/18/19 09:00 12/20/19 09:35 Alogliptin PO 25 mg DAILY FRANCISCO JAVIER Administration Atorvastatin Calcium 40 mg 12/18/19 09:00 12/20/19 09:35 Lipitor PO 40 mg DAILY FRANCISCO JAVIER Administration Brimonidine Tartrate 1 drop 12/18/19 09:00 12/20/19 09:35 Alphagan 0.2% Ophth Soln EA EYE 1 drop BID FRANCISCO JAVIER Administration Digoxin 0.125 mg 12/18/19 09:00 12/20/19 09:36 Lanoxin PO 0.125 mg DAILY FRANCISCO JAVIER Administration Diltiazem HCl 180 mg 12/19/19 09:00 12/20/19 09:36 Cardizem Cd PO 180 mg DAILY FRANCISCO JAVIER Administration Dorzolamide HCl 1 drop 12/18/19 09:00 12/20/19 09:36 Trusopt 2% Ophth Soln EA EYE 1 drop BID FRANCISCO JAVIER Administration Enoxaparin Sodium 40 mg 12/18/19 21:00 12/20/19 09:37 Lovenox SC 40 mg BID FRANCISCO JAVIER Administration Famotidine 20 mg 12/18/19 21:00 12/20/19 09:37 Pepcid SLOW IVP 20 mg BID FRANCISCO JAVIER Administration Furosemide 20 mg 12/18/19 09:00 12/20/19 09:37 Lasix PO 20 mg BID FRANCISCO JAVIER Administration Hydroxyzine HCl 25 mg 12/18/19 09:00 12/20/19 09:37 Atarax PO 25 mg BID FRANCISCO JAVIER Administration Diltiazem HCl 125 mg/ Sodium 125 mls @ 0 mls/hr 12/17/19 21:30 12/20/19 02:10 Chloride IVPB 125 mls INF FRANCISCO JAVIER Administration Protocol Titrate Sodium Chloride 1,000 mls @ 50 mls/hr 12/17/19 22:00 12/20/19 09:38 Normal Saline 0.9% IV 1,000 mls .Q20H FRANCISCO JAVIER Administration Azithromycin 500 mg/ Sodium 250 mls @ 250 mls/hr 12/18/19 10:00 12/20/19 09:38 Chloride IVPB 250 mls 1000 FRANCISCO JAVIER Administration Cefepime HCl 2 gm/ Sodium 100 mls @ 200 mls/hr 12/18/19 10:00 12/20/19 09:38 Chloride IVPB 100 mls 1000,2200 FRANCISCO JAVIER Administration Remdesivir 100 mg/ Sodium 250 mls @ 250 mls/hr 12/19/19 11:00 12/20/19 12:46 Chloride IV 12/22/19 11:59 250 mls 1100 FRANCISCO JAVIER Administration Insulin Glargine 20 units/ 0.2 mls @ 0 mls/hr 12/19/19 21:00 12/19/19 22:32 Miscellaneous Medication SC 0.2 mls HS FRANCISCO JAVIER Administration Per Protocol Insulin Human Lispro 0 units 12/19/19 11:16 12/19/19 22:35 Humalog SC 9 unit .AGGRESSIVE SLIDING PRN Administration Aggressive Correctional Scale Latanoprost 1 drop 12/18/19 21:00 12/19/19 22:31 Xalatan 0.005% Ophth Soln EA EYE 1 drop HS FRANCISCO JAVIER Administration Methylprednisolone Sodium Succinate 40 mg 12/18/19 10:00 12/20/19 12:14 Solu-Medrol IVP 40 mg Q6HR FRANCISCO JAVIER Administration Metoprolol Succinate 25 mg 12/18/19 09:00 12/20/19 09:37 Toprol Xl PO 25 mg DAILY FRANCISCO JAVIER Administration Metoprolol Tartrate 5 mg 12/20/19 07:56 12/20/19 11:31 Metoprolol Tartrate 5 Mg/5 Ml Vial IVP 5 mg Q6H PRN Administration SBP > 140 Mometasone Furoate/Formoterol Fumar 2 puff 12/18/19 18:30 12/20/19 09:35 Dulera 200 Mcg/5 Mcg Inhaler INH 2 puff BID-RT FRANCISCO JAVIER Administration Pantoprazole Sodium 40 mg 12/18/19 09:00 12/20/19 09:37 Protonix PO 40 mg DAILY FRANCISCO JAVIER Administration Potassium Chloride 20 meq 12/18/19 09:00 12/20/19 09:37 K-Dur PO 20 meq BID FRANCISCO JAVIER Administration Sodium Chloride 10 ml 12/18/19 09:00 12/20/19 09:37 Flush - Normal Saline IVF 10 ml Q12HR FRANCISCO JAVIER Administration Timolol Maleate 1 drop 12/18/19 09:00 12/20/19 09:37 Timoptic 0.5% Ophth Soln EA EYE 1 drop BID FRANCISCO JAVIER Administration Valacyclovir HCl 1,000 mg 12/18/19 09:00 12/20/19 09:38 Valtrex PO 1,000 mg DAILY FRANCISCO JAVIER Administration - Exam General Appearance: NAD General - other findings: Slightly sedated after the Ativan. Heart: no murmur, irregular Respiratory: rales, rhonchi Gastrointestinal: soft, non-tender, non-distended, normal bowel sounds, no palpable masses, no hepatomegaly, no splenomegaly, no bruit Extremities: no cyanosis, no clubbing, no edema Skin: normal turgor Musculoskeletal: generalized weakness Psychiatric: somnolent Hosp A/P (1) Acute respiratory failure with hypoxia Code(s): J96.01 - ACUTE RESPIRATORY FAILURE WITH HYPOXIA Status: Acute (2) COVID-19 virus infection Code(s): U07.1 - COVID-19 Status: Acute (3) Viral pneumonia Code(s): J12.9 - VIRAL PNEUMONIA, UNSPECIFIED Status: Acute (4) Glaucoma Code(s): H40.9 - UNSPECIFIED GLAUCOMA Status: Chronic (5) Diabetes mellitus Code(s): E11.9 - TYPE 2 DIABETES MELLITUS WITHOUT COMPLICATIONS Status: Chronic (6) Hyperlipidemia Code(s): E78.5 - HYPERLIPIDEMIA, UNSPECIFIED Status: Chronic (7) Atrial fibrillation with rapid ventricular response Code(s): I48.91 - UNSPECIFIED ATRIAL FIBRILLATION Status: Acute - Plan Acute hypoxic respiratory failure: Secondary to COVID pneumonia. Moved to BiPAP. Today he had some confusion and low-level agitation which caused his O2 sats to decline. After some sedation with Ativan they appeared to stabilize. COVID-19 pneumonia: Patient received antiviral therapy with Remdesivir. I believe he is also g etting convalescent plasma ordered. He will remain on steroids. He has a significantly elevated CRP, ferritin and D-dimer. Diabetes mellitus: Patient has significant hyperglycemia. We will have to add some insulin while continuing his Januvia. Increasing the SSI to aggressive and increasing the Lantus. Steroids were going to make his blood sugars very challenging. Atrial fibrillation with rapid ventricular response: Cardiology following. Patient's tachycardia likely due to his underlying infection and hypoxia. Still on Cardizem gtt. Glaucoma: Continue with his usual home regimen of drops. Hyperlipidemia: Continue statin. Hypertension: Blood pressure has been up significantly. Likely due to some agitation as it appeared to settle down after some Ativan as well. Acute metabolic encephalopathy: Secondary to some hypoxia and likely some mild hospital psychoses as well. Ativan appeared to be very effective in settling him down. Disposition: Discussed with the patient and his son, Dr. Wiggins, with his permission. Unfortunately, he is progressing and his CXR looks worse. His sats are more challenging. High inflammatory markers. Family will discuss the desired plan and goals of care.
--- NOTE | 2019-12-20 18:48 | PRG ---
DATE OF SERVICE: 12/20/2019 SUBJECTIVE: Mr. Wiggins today appears to have worsened. He is requiring more oxygen support. Heart rate has been more regular. He has required more IV support. He is currently on p.o. Cardizem in addition to IV Cardizem. His echo today did suggest LVEF 55% to 60%. The right atrium, right ventricle appear dilated. This is felt to be a new finding. OBJECTIVE: VITAL SIGNS: Blood pressure 139/105, pulse 92, temperature afebrile. Physical exam deferred due to COVID positive. IMPRESSION: 1. COVID positive pneumonia. 2. Dilated right ventricle, right atrium. 3. History of atrial fibrillation. RECOMMENDATIONS: Mr. Wiggins does have increase in his right atrial and right ventricle. It is very suggestive of PE, but may also be due to underlying COVID pneumonia. At this point, I discussed the case with Dr. Tedooro Stallworth, and we have decided to increase his Lovenox to full dose b.i.d. Further imaging at this point would not change current course. Family has opted for chemical code only and not intubation. Otherwise, I have no further recommendations on Feliciano. Job ID: [id number]
[2019-12-20] MEDS: Lorazepam 2 MG/ML VIAL SLOW IVP PRN (21:06)
[2019-12-20] MEDS: Insulin Glargine 20 UNITS in Pre-Filled Syringe 1 EACH SC SCH (21:08)
[2019-12-20] MEDS: Enoxaparin Sodium 60 MG/0.6 ML SYRINGE SC SCH (21:08)
[2019-12-20] MEDS: Latanoprost 0.005% Ophth Soln 2.5 ml Bottle EA EYE SCH (21:45)
[2019-12-21 03:44] LABS: ALT (SGPT) 18 U/L (8-55); AST (SGOT) 22 U/L (5-34); Albumin 2.7 g/dL (3.4-4.8); Alkaline Phosphatase 90 U/L (40-110); Bilirubin, Direct 0.2 mg/dL (0.1-0.3); Bilirubin, Total 0.4 mg/dL (0.2-1.2); Protein, Total 6.2 g/dL (5.8-8.1)
[2019-12-21] MEDS: methylPREDNISolone Sod Succ 40 MG VIAL IVP SCH ×4 (05:40→22:59)
[2019-12-21] MEDS: Sodium Chloride 0.9% 1,000 ML IV SCH ×2 (05:41→17:29)
[2019-12-21] MEDS: Mometasone 200 MCG/Formoterol 5 MCG 120 PUFF INHALER INH SCH ×2 (05:41→19:41)
[2019-12-21] MEDS: Diltiazem 125 MG in Sodium Chloride 0.9% 100 ML IVPB SCH ×2 (05:50→17:37)
[2019-12-21] MEDS: HumaLOG 300 UNITS/3 ML VIAL SC PRN ×3 (05:57→18:49)
--- NOTE | 2019-12-21 07:37 | PRG ---
DATE OF SERVICE: 12/21/2019 SUBJECTIVE: Mr. Wiggins has not required more oxygen. He continues to be on BiPAP. Heart rate and blood pressure stable. He per nurse is more alert. OBJECTIVE: VITAL SIGNS: Blood pressure , pulse 86, respirations 20. He is currently on IV Cardizem at 12.5 mg IV per hour. Physical exam deferred due to COVID positive. PERTINENT LABORATORY DATA: Hemoglobin 12.2, hematocrit 37.9. Creatinine 1.02. IMPRESSION: 1. COVID positive pneumonia. 2. Dilated RV, RA. 3. Atrial fibrillation, status post Watchman. 4. Peripheral vascular disease. RECOMMENDATIONS: At this point, recommend continued supportive care. He has had his Lovenox increased to 1 mg/kg subcu q.12. At this point, lower extremity duplex V/Q scan or CT scan, will not change clinical course. His RA and RV are dilated. This may be due to pulmonary embolus and likely related to COVID pneumonia and we will cover with Lovenox. His blood pressure and heart rate appears stable currently. Job ID: [id number]
--- NOTE | 2019-12-21 07:52 | RAD ---
EXAM: CHEST ONE VIEW HISTORY: On ventilator. Follow-up evaluation. COMPARISON: 12/20/2019 FINDINGS: Cardiac silhouette is magnified by projection but stable in size. Again noted are diffuse increased i nterstitial and alveolar opacities throughout the lungs bilaterally. Metallic density overlies region of the left atrial appendage likely related to left atrial occlusion device. Chest is overall stable compared to prior study. IMPRESSION: Overall stable bilateral interstitial and alveolar opacities seen diffusely throughout the lungs like ly related to infectious process. Follow-up to resolution is recommended.
[2019-12-21] MEDS: Cefepime 2 GM in Sodium Chloride 0.9% 100 ML IVPB SCH ×2 (09:23→21:02)
[2019-12-21] MEDS: Azithromycin 500 MG in Sodium Chloride 0.9% 250 ML 250 ML IVPB SCH (09:23)
[2019-12-21] MEDS: Potassium Chloride 20 MEQ TAB PO SCH ×2 (09:25→20:19)
[2019-12-21] MEDS: Digoxin 0.125 MG TAB PO SCH (09:25)
[2019-12-21] MEDS: valACYclovir 500 MG TAB PO SCH (09:25)
[2019-12-21] MEDS: Alogliptin 25 MG TAB PO SCH (09:25)
[2019-12-21] MEDS: hydrOXYzine 25 MG TAB PO SCH ×2 (09:25→20:19)
[2019-12-21] MEDS: Atorvastatin Calcium 40 MG TAB PO SCH (09:26)
[2019-12-21] MEDS: Furosemide 20 MG TAB PO SCH ×2 (09:26→20:19)
[2019-12-21] MEDS: Famotidine/PF 20 mg/2ml Vial SLOW IVP SCH ×2 (09:26→20:19)
--- NOTE | 2019-12-21 09:26 | PRG ---
DATE OF SERVICE: 12/21/2019 SUBJECTIVE: He is awake, responsive. OBJECTIVE: VITAL SIGNS: On BiPAP 18/10, 100% FiO2, sats 100%, respiratory rate is 25, blood pressure 137/76, temperature 97. CHEST: Bilateral rhonchi, crackles. CARDIAC: Sinus tach. ABDOMEN: Soft. LABORATORY DATA: White count 10,000. Glucose is normal. Lytes are normal. Bilirubin is normal. ASSESSMENT: 1. Respiratory failure, acute respiratory distress syndrome, benavides positive pneumonia. 2. Markedly dilated right ventricle, atrium. 3. Supraventricular tachycardia. PLAN: We have started full-dose Lovenox considering that his RV is markedly dilated. He is already on Lovenox 40 b.i.d. continue high-dose steroids. Continue remdesivir. Supportive care, PT. He is not to be intubated as per his family. Prognosis remains guarded. We will follow. Job ID: [id number]
[2019-12-21] MEDS: Brimonidine Tartrate 0.2% Ophth Soln 5 ml Bottle EA EYE SCH ×2 (09:27→21:10)
[2019-12-21] MEDS: Enoxaparin Sodium 60 MG/0.6 ML SYRINGE SC SCH ×2 (09:30→20:19)
[2019-12-21] MEDS: Dorzolamide HCl 2% Ophth Soln 10 ml Bottle EA EYE SCH ×2 (09:30→21:10)
[2019-12-21] MEDS: Timolol 0.5% Ophth Soln 5 ml Bottle EA EYE SCH ×2 (09:31→21:10)
--- NOTE | 2019-12-21 11:17 | PDOC.HOSPP ---
- Subjective Encounter Date: 12/21/19 Subjective: Patient is slightly sedated and nonverbal - Objective Vital Signs & Weight: Vital Signs (12 hours) Temp Pulse Resp Pulse Ox 12/21/19 10:38 85 11 L 100 12/21/19 09:31 102 H 12/21/19 09:25 102 H 12/21/19 01:42 102 H 21 H 99 12/21/19 00:00 97.3 F L Weight Weight 146 lb 6.4 oz Most Recent Monitor Data Heart Rate from ECG 86 NIBP 133/76 NIBP BP-Mean 95 Respiration from ECG 25 SpO2 100 I&O: 12/20/19 12/21/19 12/22/19 06:59 06:59 06:59 Intake Total 850 Balance 850 Result Diagrams: 12/20/19 03:20 12/20/19 03:30 Additional Labs: Accuchecks 12/21/19 06:03 POC Glucose 181 H Hospitalist ROS - Medication Medications: Active Medications Generic Name Dose Route Start Last Admin Trade Name Freq PRN Reason Stop Dose Admin Alogliptin Benzoate 25 mg 12/18/19 09:00 12/21/19 09:25 Alogliptin PO 25 mg DAILY FRANCISCO JAVIER Administration Atorvastatin Calcium 40 mg 12/18/19 09:00 12/21/19 09:26 Lipitor PO 40 mg DAILY FRANCISCO JAVIER Administration Brimonidine Tartrate 1 drop 12/18/19 09:00 12/21/19 09:27 Alphagan 0.2% Ophth Soln EA EYE 1 drop BID FRANCISCO JAVIER Administration Digoxin 0.125 mg 12/18/19 09:00 12/21/19 09:25 Lanoxin PO 0.125 mg DAILY FRANCISCO JAVIER Administration Diltiazem HCl 180 mg 12/19/19 09:00 12/21/19 09:26 Cardizem Cd PO 180 mg DAILY FRANCISCO JAVIER Administration Dorzolamide HCl 1 drop 12/18/19 09:00 12/21/19 09:30 Trusopt 2% Ophth Soln EA EYE 1 drop BID FRANCISCO JAVIER Administration Enoxaparin Sodium 60 mg 12/20/19 21:00 12/21/19 09:30 Enoxaparin Sodium 60 Mg/0.6 Ml Syringe SC 60 mg 09,2100 FRANCISCO JAVIER Administration Famotidine 20 mg 12/18/19 21:00 12/21/19 09:26 Pepcid SLOW IVP 20 mg BID FRANCISCO JAVIER Administration Furosemide 20 mg 12/18/19 09:00 12/21/19 09:26 Lasix PO 20 mg BID FRANCISCO JAVIER Administration Hydroxyzine HCl 25 mg 12/18/19 09:00 12/21/19 09:25 Atarax PO 25 mg BID FRANCISCO JAVIER Administration Diltiazem HCl 125 mg/ Sodium 125 mls @ 0 mls/hr 12/17/19 21:30 12/21/19 05:50 Chloride IVPB 125 mls INF FRANCISCO JAVIER Administration Protocol Titrate Sodium Chloride 1,000 mls @ 50 mls/hr 12/17/19 22:00 12/21/19 05:41 Normal Saline 0.9% IV 1,000 mls .Q20H FRANCISCO JAVIER Administration Azithromycin 500 mg/ Sodium 250 mls @ 250 mls/hr 12/18/19 10:00 12/21/19 09:23 Chloride IVPB 250 mls 1000 FRANCISCO JAVIER Administration Cefepime HCl 2 gm/ Sodium 100 mls @ 200 mls/hr 12/18/19 10:00 12/21/19 09:23 Chloride IVPB 100 mls 1000,2200 FRANCISCO JAVIER Administration Remdesivir 100 mg/ Sodium 250 mls @ 250 mls/hr 12/19/19 11:00 12/20/19 12:46 Chloride IV 12/22/19 11:59 250 mls 1100 FRANCISCO JAVIER Administration Insulin Glargine 20 units/ 0.2 mls @ 0 mls/hr 12/19/19 21:00 12/20/19 21:08 Miscellaneous Medication SC 0.2 mls HS FRANCISCO JAVIER Administration Per Protocol Insulin Human Lispro 0 units 12/19/19 11:16 12/21/19 05:57 Humalog SC 3 unit .AGGRESSIVE SLIDING PRN Administration Aggressive Correctional Scale Latanoprost 1 drop 12/18/19 21:00 12/20/19 21:45 Xalatan 0.005% Ophth Soln EA EYE 1 drop HS FRANCISCO JAVIER Administration Lorazepam 1 mg 12/20/19 12:23 12/20/19 21:06 Lorazepam 2 Mg/Ml Vial SLOW IVP 1 mg Q4H PRN Administration Anxiety/Agitation Methylprednisolone Sodium Succinate 40 mg 12/18/19 10:00 12/21/19 05:40 Solu-Medrol IVP 40 mg Q6HR FRANCISCO JAVIER Administration Metoprolol Succinate 25 mg 12/18/19 09:00 12/21/19 09:25 Toprol Xl PO 25 mg DAILY FRANCISCO JAVIER Administration Metoprolol Tartrate 5 mg 12/20/19 07:56 12/20/19 11:31 Metoprolol Tartrate 5 Mg/5 Ml Vial IVP 5 mg Q6H PRN Administration SBP > 140 Mometasone Furoate/Formoterol Fumar 2 puff 12/18/19 18:30 12/21/19 05:41 Dulera 200 Mcg/5 Mcg Inhaler INH Not Given BID-RT FRANCISCO JAVIER Pantoprazole Sodium 40 mg 12/18/19 09:00 12/21/19 09:30 Protonix PO 40 mg DAILY FRANCISCO JAVIER Administration Potassium Chloride 20 meq 12/18/19 09:00 12/21/19 09:25 K-Dur PO 20 meq BID FRANCISCO JAVIER Administration Sodium Chloride 10 ml 12/18/19 09:00 12/21/19 09:31 Flush - Normal Saline IVF 10 ml Q12HR FRANCISCO JAVIER Administration Timolol Maleate 1 drop 12/18/19 09:00 12/21/19 09:31 Timoptic 0.5% Ophth Soln EA EYE 1 drop BID FRANCISCO JAVIER Administration Valacyclovir HCl 1,000 mg 12/18/19 09:00 12/21/19 09:25 Valtrex PO 1,000 mg DAILY FRANCISCO JAVIER Administration - Exam General - other findings: Sedated. On BiPAP. Heart: RRR, no murmur, no gallops, no rubs, normal peripheral pulses Respiratory: CTAB, no wheezes, no rales, no ronchi, normal chest expansion, no tachypnea, normal percussion Gastrointestinal: soft, non-distended, normal bowel sounds, no palpable masses, no hepatomegaly, no splenomegaly Extremities: no cyanosis, no clubbing, no edema Skin: normal turgor Hosp A/P (1) Acute respiratory failure with hypoxia Code(s): J96.01 - ACUTE RESPIRATORY FAILURE WITH HYPOXIA Status: Acute (2) COVID-19 virus infection Code(s): U07.1 - COVID-19 Status: Acute (3) Viral pneumonia Code(s): J12.9 - VIRAL PNEUMONIA, UNSPECIFIED Status: Acute (4) Glaucoma Code(s): H40.9 - UNSPECIFIED GLAUCOMA Status: Chronic (5) Diabetes mellitus Code(s): E11.9 - TYPE 2 DIABETES MELLITUS WITHOUT COMPLICATIONS Status: Chronic (6) Hyperlipidemia Code(s): E78.5 - HYPERLIPIDEMIA, UNSPECIFIED Status: Chronic (7) Atrial fibrillation with rapid ventricular response Code(s): I48.91 - UNSPECIFIED ATRIAL FIBRILLATION Status: Acute (8) Right ventricular dilation, secondary Code(s): I51.7 - CARDIOMEGALY Status: Acute - Plan Acute hypoxic respiratory failure: Secondary to COVID pneumonia. Moved to [facility]. Today he had some confusion and low-level agitation which caused his O2 sats to decline. After some sedation with Ativan they appeared to stabilize. Appears to have remained stabilized with that regimen overnight. COVID-19 pneumonia: Patient received antiviral therapy with Remdesivir. He will remain on steroids. He has a significantly elevated CRP, ferritin and D-dimer. Recheck those in the morning. Diabetes mellitus: Patient has significant hyperglycemia. Primarily managed with insulin. Have increased his long-acting insulin and sliding scale. Blood sugars are starting to improve. Atrial fibrillation with rapid ventricular response: Cardiology following. Rate is improved. Remains on diltiazem drip. Full dose anticoagulation. Glaucoma: Continue with his usual home regimen of drops. Hyperlipidemia: Continue statin. Hypertension: Blood pressure has been up significantly. Likely due to some agitation as it appeared to settle down after some Ativan as well. Acute metabolic encephalopathy: Secondary to some hypoxia and likely some mild hospital psychoses as well. Ativan appeared to be very effective in settling him down. Dilated right ventricle: Likely represents significant pulmonary hypertension from the inflammatory changes of the COVID pneumonia. PE cannot be completely ruled out nor adequately evaluated. On full dose anticoagulation. Disposition: Overall prognosis remains poor. However he has appeared to stabilize a bit after starting with the benzodiazepines. We are currently able to adequately o xygenate him with the BiPAP.
[2019-12-21] MEDS: REMDESIVIR (EUA) 100 MG in Sodium Chloride 0.9% 250 ML 230 ML IV SCH (12:20)
[2019-12-21] MEDS: Insulin Glargine 20 UNITS in Pre-Filled Syringe 1 EACH SC SCH (20:19)
[2019-12-21] MEDS: Latanoprost 0.005% Ophth Soln 2.5 ml Bottle EA EYE SCH (21:10)
[2019-12-22] MEDS: Metoprolol Tartrate 5 MG/5 ML VIAL IVP PRN ×2 (00:09→05:59)
[2019-12-22] MEDS: Lorazepam 2 MG/ML VIAL SLOW IVP PRN ×4 (02:29→20:18)
[2019-12-22 03:53] LABS: ALT (SGPT) 16 U/L (8-55); AST (SGOT) 21 U/L (5-34); Albumin 2.9 g/dL (3.4-4.8); Alkaline Phosphatase 106 U/L (40-110); Bilirubin, Direct 0.3 mg/dL (0.1-0.3); Bilirubin, Total 0.4 mg/dL (0.2-1.2); CRP (Inflammatory) 9.58 mg/dL (= or < 0.5); Protein, Total 6.4 g/dL (5.8-8.1)
[2019-12-22] MEDS: Diltiazem 125 MG in Sodium Chloride 0.9% 100 ML IVPB SCH ×3 (04:35→20:28)
[2019-12-22] MEDS: methylPREDNISolone Sod Succ 40 MG VIAL IVP SCH ×3 (05:59→17:30)
[2019-12-22] MEDS: Mometasone 200 MCG/Formoterol 5 MCG 120 PUFF INHALER INH SCH ×2 (06:22→17:31)
[2019-12-22] MEDS: Alogliptin 25 MG TAB PO SCH (08:27)
[2019-12-22] MEDS: Famotidine/PF 20 mg/2ml Vial SLOW IVP SCH ×2 (08:28→20:23)
[2019-12-22] MEDS: hydrOXYzine 25 MG TAB PO SCH ×2 (08:28→20:28)
[2019-12-22] MEDS: Potassium Chloride 20 MEQ TAB PO SCH ×2 (08:28→20:22)
[2019-12-22] MEDS: Atorvastatin Calcium 40 MG TAB PO SCH (08:28)
[2019-12-22] MEDS: Furosemide 20 MG TAB PO SCH ×2 (08:28→20:22)
[2019-12-22] MEDS: Digoxin 0.125 MG TAB PO SCH (08:29)
[2019-12-22] MEDS: Enoxaparin Sodium 60 MG/0.6 ML SYRINGE SC SCH ×2 (08:29→20:23)
[2019-12-22] MEDS: Brimonidine Tartrate 0.2% Ophth Soln 5 ml Bottle EA EYE SCH ×2 (08:30→20:23)
[2019-12-22] MEDS: Timolol 0.5% Ophth Soln 5 ml Bottle EA EYE SCH ×2 (08:31→20:24)
[2019-12-22] MEDS: Dorzolamide HCl 2% Ophth Soln 10 ml Bottle EA EYE SCH ×2 (08:40→20:23)
[2019-12-22] MEDS: valACYclovir 500 MG TAB PO SCH (08:50)
--- NOTE | 2019-12-22 09:05 | PRG ---
DATE OF SERVICE: 12/22/2019 SUBJECTIVE: Mr. Wiggins is not requiring more oxygen. His oxygenation has been stable at 80% O2. He continues on BiPAP. His heart rate continues to be elevated. He is on 50 mg IV Cardizem. OBJECTIVE: VITAL SIGNS: Blood pressure 164/109, heart rate 105, respirations 20. Physical exam deferred due to COVID positive. PERTINENT LABORATORY DATA: Hemoglobin 12.2, hematocrit 37.9. IMPRESSION: 1. Atrial fibrillation with rapid ventricular response. 2. COVID positive pneumonia. 3. Hypoxia. RECOMMENDATIONS: 1. The patient is currently on full-dose Lovenox due to enlarged RV, RA, and concern for PE. 2. The patient appears stable with condition still guarded due to requiring BiPAP and O2. 3. Supplement with p.o. Cardizem 120 one p.o. x1 dose. 4. Consider adding low-dose beta drake for better rate control, but increased heart rate likely related to hypoxia. Otherwise, I have no further recommendations. Job ID: [id number]
--- NOTE | 2019-12-22 09:12 | PRG ---
DATE OF SERVICE: 12/22/2019 SUBJECTIVE: This is an 79-year-old gentleman, remains in MICU. OBJECTIVE: VITAL SIGNS: Temperature is 96, pulse 130, irregularly irregular, blood pressure 164/100, respirations 20, saturations are 92%, on a BiPAP. CHEST: Decreased breath sounds. No wheezing. No crackles. CARDIAC: Normal S1, S2. No gallops. ABDOMEN: No masses. LABORATORY AND DIAGNOSTIC DATA: His C-reactive protein is down to 9.8 from a high of 30. Otherwise, no other lab was done. X-ray being ordered. ASSESSMENT AND PLAN: 1. Respiratory failure secondary to coronavirus pneumonia. 2. Cardiac arrhythmias, SVT. Comfort care is being ordered for the gentleman, a week of antibiotics. Continue high-dose steroids, cardiac care for the Cardizem. He has already received remdesivir and convalescent plasma. Prognosis remains poor. We will follow. Job ID: [id number]
[2019-12-22] MEDS: Azithromycin 500 MG in Sodium Chloride 0.9% 250 ML 250 ML IVPB SCH (10:36)
[2019-12-22] MEDS: Cefepime 2 GM in Sodium Chloride 0.9% 100 ML IVPB SCH ×2 (10:37→21:11)
[2019-12-22] MEDS: Metoprolol Tartrate 50 MG TAB PO SCH ×2 (10:37→20:22)
--- NOTE | 2019-12-22 10:47 | RAD ---
PORTABLE CHEST: DATE: 12/22/2019 HISTORY: Pneumonia follow-up. COMPARISON: 12/21/2019. FINDINGS: Diffuse alveolar infiltrates are seen throughout both lungs, unchanged from yesterday. IMPRESSION: No evidence of interval change. POS: OFF
[2019-12-22] MEDS: REMDESIVIR (EUA) 100 MG in Sodium Chloride 0.9% 250 ML 230 ML IV SCH (11:27)
[2019-12-22] MEDS ORDERED: Lorazepam 2 MG/ML VIAL SLOW IVP SCH (13:00)
[2019-12-22] MEDS ORDERED: Morphine 2 MG/ML VIAL ONE ×2 (13:10→16:36)
[2019-12-22] MEDS ORDERED: Morphine 2 MG/ML VIAL SLOW IVP SCH ×2 (14:00→19:00)
--- NOTE | 2019-12-22 14:51 | PDOC.HOSPP ---
- Subjective Encounter Date: 12/22/19 Subjective: Patient remains largely sedated. He is a little encephalopathic when he is awake. - Objective Vital Signs & Weight: Vital Signs (12 hours) Temp Pulse Resp BP Pulse Ox 12/22/19 10:49 98 6 L 97 12/22/19 08:31 113 H 167/120 H 12/22/19 08:29 113 H 12/22/19 08:00 96 F L 96 12/22/19 04:00 96.9 F L 12/22/19 02:56 92 18 96 Weight Weight 146 lb 6.4 oz Most Recent Monitor Data Heart Rate from ECG 85 NIBP 135/86 NIBP BP-Mean 102 Respiration from ECG 18 SpO2 94 I&O: 12/21/19 12/22/19 12/23/19 06:59 06:59 06:59 Intake Total 850 1800 Balance 850 1800 Result Diagrams: 12/20/19 03:20 12/20/19 03:30 Additional Labs: Accuchecks 12/22/19 12/22/19 12/21/19 11:34 06:10 20:30 POC Glucose 109 H 145 H 171 H 12/21/19 12/21/19 17:49 12:42 POC Glucose 198 H 188 H Hospitalist ROS - Medication Medications: Active Medications Generic Name Dose Route Start Last Admin Trade Name Cr PRN Reason Stop Dose Admin Alogliptin Benzoate 25 mg 12/18/19 09:00 12/22/19 08:27 Alogliptin PO 25 mg DAILY FRANCISCO JAVIER Administration Atorvastatin Calcium 40 mg 12/18/19 09:00 12/22/19 08:28 Lipitor PO 40 mg DAILY FRANCISCO JAVIER Administration Brimonidine Tartrate 1 drop 12/18/19 09:00 12/22/19 08:30 Alphagan 0.2% Ophth Soln EA EYE 1 drop BID FRANCISCO JAVIER Administration Digoxin 0.125 mg 12/18/19 09:00 12/22/19 08:29 Lanoxin PO 0.125 mg DAILY FRANCISCO JAVIER Administration Diltiazem HCl 180 mg 12/19/19 09:00 12/22/19 08:28 Cardizem Cd PO 180 mg DAILY FRANCISCO JAVIER Administration Dorzolamide HCl 1 drop 12/18/19 09:00 12/22/19 08:40 Trusopt 2% Ophth Soln EA EYE 1 drop BID FRANCISCO JAVIER Administration Enoxaparin Sodium 60 mg 12/20/19 21:00 12/22/19 08:29 Enoxaparin Sodium 60 Mg/0.6 Ml Syringe SC 60 mg 0900,2100 FRANCISCO JAVIER Administration Famotidine 20 mg 12/18/19 21:00 12/22/19 08:28 Pepcid SLOW IVP 20 mg BID FRANCISCO JAVIER Administration Furosemide 20 mg 12/18/19 09:00 12/22/19 08:28 Lasix PO 20 mg BID FRANCISCO JAVIER Administration Hydroxyzine HCl 25 mg 12/18/19 09:00 12/22/19 08:28 Atarax PO 25 mg BID FRANCISCO JAVIER Administration Diltiazem HCl 125 mg/ Sodium 125 mls @ 0 mls/hr 12/17/19 21:30 12/22/19 14:11 Chloride IVPB 125 mls INF FRACNISCO JAVIER Administration Protocol Titrate Sodium Chloride 1,000 mls @ 50 mls/hr 12/17/19 22:00 12/21/19 17:29 Normal Saline 0.9% IV 1,000 mls .Q20H FRANCISCO JAVIER Administration Azithromycin 500 mg/ Sodium 250 mls @ 250 mls/hr 12/18/19 10:00 12/22/19 10:36 Chloride IVPB 250 mls 1000 FRANCISCO JAVIER Administration Cefepime HCl 2 gm/ Sodium 100 mls @ 200 mls/hr 12/18/19 10:00 12/22/19 10:37 Chloride IVPB 100 mls 1000,2200 FRANCISCO JAVIER Administration Insulin Glargine 20 units/ 0.2 mls @ 0 mls/hr 12/19/19 21:00 12/21/19 20:19 Miscellaneous Medication SC 0.2 mls HS FRANCISCO JAVIER Administration Per Protocol Insulin Human Lispro 0 units 12/19/19 11:16 12/21/19 18:49 Humalog SC 3 unit .AGGRESSIVE SLIDING PRN Administration Aggressive Correctional Scale Latanoprost 1 drop 12/18/19 21:00 12/21/19 21:10 Xalatan 0.005% Ophth Soln EA EYE 1 drop HS FRANCISCO JAVIER Administration Lorazepam 1 mg 12/20/19 12:23 12/22/19 11:25 Lorazepam 2 Mg/Ml Vial SLOW IVP 1 mg Q4H PRN Administration Anxiety/Agitation Lorazepam 1 mg 12/22/19 13:00 12/22/19 13:52 Lorazepam 2 Mg/Ml Vial SLOW IVP 12/22/19 15:00 1 mg NOW FRANCISCO JAVIER Administration Methylprednisolone Sodium Succinate 40 mg 12/18/19 10:00 12/22/19 10:37 Solu-Medrol IVP 40 mg Q6HR FRANCISCO JAVIER Administration Metoprolol Tartrate 5 mg 12/20/19 07:56 12/22/19 05:59 Metoprolol Tartrate 5 Mg/5 Ml Vial IVP 5 mg Q6H PRN Administration SBP > 140 Metoprolol Tartrate 50 mg 12/22/19 09:00 12/22/19 10:37 Metoprolol Tartrate 50 Mg Tab PO 50 mg BID FRANCISCO JAVIER Administration Mometasone Furoate/Formoterol Fumar 2 puff 12/18/19 18:30 12/22/19 06:22 Dulera 200 Mcg/5 Mcg Inhaler INH Not Given BID-RT FRANCISCO JAVIER Morphine Sulfate 0.5 mg 12/22/19 14:00 12/22/19 14:10 Morphine 2 Mg/Ml Vial SLOW IVP 12/22/19 16:00 Not Given NOW FRANCISCO JAVIER Pantoprazole Sodium 40 mg 12/18/19 09:00 12/22/19 08:29 Protonix PO 40 mg DAILY FRANCISCO JAVIER Administration Potassium Chloride 20 meq 12/18/19 09:00 12/22/19 08:28 K-Dur PO 20 meq BID FRANCISCO JAVIER Administration Sodium Chloride 10 ml 12/18/19 09:00 12/22/19 08:39 Flush - Normal Saline IVF 10 ml Q12HR FRANCISCO JAVIER Administration Timolol Maleate 1 drop 12/18/19 09:00 12/22/19 08:31 Timoptic 0.5% Ophth Soln EA EYE 1 drop BID FRANCISCO JAVIER Administration Valacyclovir HCl 1,000 mg 12/18/19 09:00 12/22/19 08:50 Valtrex PO 1,000 mg DAILY FRANCISCO JAVIER Administration - Exam General - other findings: Somnolent. Encephalopathic. On BiPAP. Heart: no murmur, irregular Heart - other findings: Tachycardia Respiratory: rales, rhonchi, tachypneic, wheezes Gastrointestinal: soft, non-distended Extremities: no cyanosis, no clubbing, no edema Skin: normal turgor Skin - other findings: Slightly puffy Musculoskeletal: generalized weakness Hosp A/P (1) Acute respiratory failure with hypoxia Code(s): J96.01 - ACUTE RESPIRATORY FAILURE WITH HYPOXIA Status: Acute (2) COVID-19 virus infection Code(s): U07.1 - COVID-19 Status: Acute (3) Viral pneumonia Code(s): J12.9 - VIRAL PNEUMONIA, UNSPECIFIED Status: Acute (4) Glaucoma Code(s): H40.9 - UNSPECIFIED GLAUCOMA Status: Chronic (5) Diabetes mellitus Code(s): E11.9 - TYPE 2 DIABETES MELLITUS WITHOUT COMPLICATIONS Status: Chronic (6) Hyperlipidemia Code(s): E78.5 - HYPERLIPIDEMIA, UNSPECIFIED Status: Chronic (7) Atrial fibrillation with rapid ventricular response Code(s): I48.91 - UNSPECIFIED ATRIAL FIBRILLATION Status: Acute (8) Right ventricular dilation, secondary Code(s): I51.7 - CARDIOMEGALY Status: Acute - Plan Acute hypoxic respiratory failure: Secondary to COVID pneumonia. Moved to BiPAP. Today he had some confusion and low-level agitation which caused his O2 sats to decline. After some sedation with Ativan they appeared to stabilize. As long as he remains slightly sedated and on BiPAP his sats remain relatively stable in the 90s. Without the mask the patient desaturated into the 30s very promptly. COVID-19 pneumonia: Patient received antiviral therapy with Remdesivir. He will remain on steroids. He has a significantly elevated CRP, ferritin and D-dimer. Recheck those in the morning. Diabetes mellitus: Patient has significant hyperglycemia. Primarily managed with insulin. Have increased his long-acting insulin and sliding scale. Blood sugars are starting to improve. Atrial fibrillation with rapid ventricular response: Cardiology following. Rate is improved. Remains on diltiazem drip. Full dose anticoagulation. Glaucoma: Continue with his usual home regimen of drops. Hyperlipidemia: Continue statin. Hypertension: Blood pressure has been up significantly. Likely due to some agitation as it appeared to settle down after some Ativan as well. Acute metabolic encephalopathy: Secondary to some hypoxia and likely some mild hospital psychoses as well. Ativan appeared to be very effective in settling him down. Dilated right ventricle: Likely represents significant pulmonary hypertension from the inflammatory changes of the COVID pneumonia. PE cannot be completely ruled out nor adequately evaluated. On full dose anticoagulation. Disposition: Overall prognosis remains poor. However he has appeared to stabilize a bit after starting with the benzodiazepines. We are currently able to adequately oxygenate him with the BiPAP. Providing low-dose morphine as needed in order to assure the patient is comfortable and addressing the air hunger. Been in communication with the patient's son. He is now DNR and they fully understand the prognosis is poor.
[2019-12-22] MEDS: Sodium Chloride 0.9% 1,000 ML IV SCH (20:18)
[2019-12-22] MEDS: Insulin Glargine 20 UNITS in Pre-Filled Syringe 1 EACH SC SCH (20:23)
[2019-12-22] MEDS: Latanoprost 0.005% Ophth Soln 2.5 ml Bottle EA EYE SCH (20:24)
[2019-12-22 20:25] VITALS: BP 186/131
[2019-12-23] MEDS: methylPREDNISolone Sod Succ 40 MG VIAL IVP SCH ×3 (00:01→11:31)
[2019-12-23] MEDS: Morphine 2 MG/ML VIAL SLOW IVP PRN ×4 (01:58→12:05)
[2019-12-23] MEDS: Diltiazem 125 MG in Sodium Chloride 0.9% 100 ML IVPB SCH (04:01)
[2019-12-23] MEDS: Lorazepam 2 MG/ML VIAL SLOW IVP PRN (05:27)
[2019-12-23] MEDS: HumaLOG 300 UNITS/3 ML VIAL SC PRN (05:29)
[2019-12-23] MEDS: Mometasone 200 MCG/Formoterol 5 MCG 120 PUFF INHALER INH SCH (06:57)
[2019-12-23] MEDS: Metoprolol Tartrate 50 MG TAB PO SCH (09:33)
[2019-12-23] MEDS: Enoxaparin Sodium 60 MG/0.6 ML SYRINGE SC SCH (09:33)
[2019-12-23] MEDS: Potassium Chloride 20 MEQ TAB PO SCH (09:33)
[2019-12-23] MEDS: Atorvastatin Calcium 40 MG TAB PO SCH (09:33)
[2019-12-23] MEDS: Alogliptin 25 MG TAB PO SCH (09:33)
[2019-12-23] MEDS: Digoxin 0.125 MG TAB PO SCH (09:33)
[2019-12-23] MEDS: Cefepime 2 GM in Sodium Chloride 0.9% 100 ML IVPB SCH (09:34)
[2019-12-23] MEDS: Famotidine/PF 20 mg/2ml Vial SLOW IVP SCH (09:34)
[2019-12-23] MEDS: Furosemide 20 MG TAB PO SCH (09:34)
[2019-12-23] MEDS: Timolol 0.5% Ophth Soln 5 ml Bottle EA EYE SCH (09:35)
[2019-12-23] MEDS: Brimonidine Tartrate 0.2% Ophth Soln 5 ml Bottle EA EYE SCH (09:35)
[2019-12-23] MEDS: valACYclovir 500 MG TAB PO SCH (09:35)
[2019-12-23] MEDS: Dorzolamide HCl 2% Ophth Soln 10 ml Bottle EA EYE SCH (09:36)
[2019-12-23] MEDS: hydrOXYzine 25 MG TAB PO SCH (09:38)
[2019-12-23 10:49] VITALS: TEMP 97.2
[2019-12-23] MEDS ORDERED: Azithromycin 500 MG in Sodium Chloride 0.9% 250 ML 250 ML IVPB SCH (11:00)
[2019-12-23] MEDS ORDERED: Lorazepam 2 MG/ML VIAL SLOW IVP PRN (11:30)
--- NOTE | 2019-12-23 12:56 | EKG ---
Test Reason : Blood Pressure : / mmHG Vent. Rate : 131 BPM Atrial Rate : 127 BPM P-R Int : 000 ms QRS Dur : 094 ms QT Int : 296 ms P-R-T Axes : 000 079 -67 degrees QTc Int : 437 ms Atrial fibrillation with rapid ventricular response Septal infarct , age undetermined Marked ST abnormality, possible inferior subendocardial injury Abnormal ECG Confirmed by SHAR LUO ([id number]), purchase request editor DARIANA YANG ([id number]) on 12/23/2019 12:55:52 PM Referred By: Confirmed By:SHAR Kim
--- NOTE | 2019-12-23 13:17 | PRG ---
DATE OF SERVICE: 12/23/2019 I came and saw the patient briefly earlier and spoke with his son. The patient has been on a BiPAP with FiO2 of 90% to 100%, but he is not making any progress. They have elected not to pursue intubation in accordance with his previously expressed wishes. At the time I came by, they were talking about their expectations and wishes. They have since made a decision to withdraw BiPAP support and initiate comfort care. This was done a bit earlier. Family is at the bedside. He is receiving morphine on an as-needed basis for restlessness and air hunger. Unfortunately, I expect him to fairly soon. Pulmonary Service will not follow on an ongoing basis, but will be available if requested. Job ID: [id number]
--- NOTE | 2019-12-25 07:21 | DIS ---
DATE OF ADMISSION: 12/17/2019 DATE OF DISCHARGE: 12/23/2019 DISCHARGE DIAGNOSES: 1. Acute respiratory failure with hypoxia. 2. COVID pneumonia. 3. Glaucoma. 4. Type 2 diabetes mellitus. 5. Hyperlipidemia. 6. Atrial fibrillation. 7. Secondary right ventricular dilatation. Please refer to history and physical and daily progress notes for more details. CONSULTS: 1. Cardiology with Dr. Serrano. 2. Critical Care, Dr. Stallworth. PHYSICAL EXAMINATION: The patient is currently having a rattle, respiratory distress even though on BiPAP. Family updated. Per their instruction, BiPAP will be removed. HOSPITAL COURSE: Briefly, this is an 79-year-old male admitted for COVID pneumonia. He also has a history of chronic atrial fibrillation, status post Watchman device. He was placed on Zithromax, Lipitor, cefepime, in addition to Cardizem for his atrial fibrillation with RVR and Lovenox b.i.d. for COVID pneumonia. He was also getting methylprednisolone. On BiPAP, he did not do well. Family opted for comfort care. On around noon, BiPAP was removed and the patient had demise at 1240 hours. Primary cause of demise: COVID pneumonia. Secondary cause: Several comorbidities including atrial fibrillation, acute hypoxic respiratory failure, type 2 diabetes mellitus and hypertension. Job ID: [id number] [facility]
== END 2019-12-23 14:40 | disposition expired | DRG 177 ==
LOC: ERS 18:55 → IMCU/EMU 20:55
PROVIDERS: ADMIT Internal Medicine; ATTEND Internal Medicine
PROC: 8E0ZXY6 Isolation (ICD-10-PCS; principal; 2019-12-17)
PROC: XW13325 Transfusion of Convalescent Plasma (Nonautologous) into Peripheral Vein, Percutaneous Approach, New Technology Group 5 (ICD-10-PCS; 2019-12-18)
PROC: XW033E5 Introduction of Remdesivir Anti-infective into Peripheral Vein, Percutaneous Approach, New Technology Group 5 (ICD-10-PCS; 2019-12-18)
PROC: XW033E5 Introduction of Remdesivir Anti-infective into Peripheral Vein, Percutaneous Approach, New Technology Group 5 (ICD-10-PCS; 2019-12-19)
PROC: 5A09457 Assistance with Respiratory Ventilation, 24-96 Consecutive Hours, Continuous Positive Airway Pressure (ICD-10-PCS; 2019-12-20)
DX: U07.1 COVID-19 (principal); J96.01 Acute respiratory failure with hypoxia; J12.89 Other viral pneumonia; G93.41 Metabolic encephalopathy; I26.99 Other pulmonary embolism without acute cor pulmonale; I48.20 Chronic atrial fibrillation, unspecified; I47.1 Supraventricular tachycardia; I24.8 Other forms of acute ischemic heart disease; Z66 Do not resuscitate; Z51.5 Encounter for palliative care; H40.9 Unspecified glaucoma; E78.5 Hyperlipidemia, unspecified; E78.00 Pure hypercholesterolemia, unspecified; Z96.642 Presence of left artificial hip joint; E11.65 Type 2 diabetes mellitus with hyperglycemia; I73.9 Peripheral vascular disease, unspecified; I51.7 Cardiomegaly; I27.20 Pulmonary hypertension, unspecified; Z88.8 Allergy status to other drugs, medicaments and biological substances; Z79.899 Other long term (current) drug therapy
CPT/HCPCS: 36415; 36416; 36430; 71045; 80048; 80053; 80076; 82553; 82728; 83605; 83880; 84484; 85025; 85379; 86140; 86850; 86900; 86901; 93005; 93306; 94660; 96360; 96374; 96375; C9113; J0456; J0692; J1100; J1650; J1815; J1940; J2060; J2270; J2920; J3490; J7050; J7620; P9017; S0028